=== PATIENT | female | born 1955 | race Hispanic/Latino ===

== ENCOUNTER 2018-05-02 15:43 | Emergency (ER) ==
[~2018-05-02] VITALS: Ht 157.5 cm; Wt 67.6 kg
--- OUTSIDE RECORDS SUMMARY | 2018-05-02 15:46 | XMS REPORT ---
Author Author [facility] Address Unknown Phone Unavailable Care Team Providers Care Residential Life Director Name Role Phone Unavailable Unavailable Problems This patient has no known problems. Allergies, Adverse Reactions, Alerts This patient has no known allergies or adverse reactions. Medications This patient has no known medications. Encounters Start Date/Time End Date/Time Encounter Type Admission Type Attending [facility] [place] Facility Care Department Encounter ID 2018-05-18 00:00:00 2018-05-18 00:00:00 Outpatient [facility] [id number] 2018-05-01 14:32:22 2018-05-01 14:32:22 Outpatient [facility] [id number] 2018-04-30 10:23:44 2018-04-30 10:23:44 Outpatient [facility] [id number] 2018-04-30 09:55:23 2018-04-30 09:55:23 Outpatient [facility] [id number] 2018-02-27 08:47:51 2018-02-27 08:47:51 Outpatient [facility] [id number] 2018-02-27 08:05:34 2018-02-27 08:05:34 Outpatient [facility] [id number] 2018-01-05 07:56:08 2018-01-05 07:56:08 Outpatient [facility] [id number] 2017-11-20 09:36:43 2017-11-20 09:36:43 Outpatient [facility] [id number] 2017-11-20 09:02:38 2017-11-20 09:02:38 Outpatient [facility] [id number] 2017-11-01 00:00:00 2017-11-01 00:00:00 Outpatient [facility] [id number] 2017-08-26 13:29:42 2017-08-26 13:29:42 Outpatient [facility] [id number] 2017-08-26 11:15:29 2017-08-26 11:15:29 Outpatient [facility] [id number] 2017-08-15 00:00:00 2017-08-15 00:00:00 Outpatient [facility] [id number] 2017-07-18 09:13:48 2017-07-18 09:13:48 Outpatient [facility] [id number] 2017-06-18 08:39:48 2017-06-18 08:39:48 Outpatient [facility] [id number] 2017-06-04 08:45:01 2017-06-04 08:45:01 Outpatient [facility] [id number] 2017-05-16 00:00:00 2017-05-16 00:00:00 Outpatient [facility] [id number] 2017-01-06 09:57:47 2017-01-06 09:57:47 Outpatient [facility] [id number] 2016-12-10 09:43:29 2016-12-10 09:43:29 Outpatient [facility] [id number] 2016-12-03 00:00:00 2016-12-03 00:00:00 Outpatient [facility] [id number] 2016-11-29 12:13:18 2016-11-29 12:13:18 Outpatient [facility] [id number] 2016-11-29 11:13:05 2016-11-29 11:13:05 Outpatient [facility] [id number] 2016-11-15 16:00:01 2016-11-15 16:00:01 Outpatient [facility] [id number] 2016-10-22 09:34:17 2016-10-22 09:34:17 Outpatient [facility] [id number] 2016-10-08 00:00:00 2016-10-08 00:00:00 Outpatient [facility] [id number] 2016-10-07 00:00:00 2016-10-07 00:00:00 Outpatient [facility] [id number] 2016-08-23 10:46:00 2016-08-23 10:46:00 Outpatient [facility] [id number] 2016-08-12 08:04:51 2016-08-12 08:04:51 Outpatient [facility] [id number] 2016-08-07 09:49:40 2016-08-07 09:49:40 Outpatient [facility] [id number] 2016-07-09 08:14:39 2016-07-09 08:14:39 Outpatient [facility] [id number] 2016-07-02 11:33:29 2016-07-02 11:33:29 Outpatient [facility] [id number] 2016-07-02 10:10:42 2016-07-02 10:10:42 Outpatient [facility] [id number] 2016-02-23 08:36:30 2016-02-23 08:36:30 Outpatient [facility] [id number]
== END 2018-05-02 17:00 | disposition left against medical advice (07) ==
LOC: ER 15:43
DX: M25.512 Pain in left shoulder (principal); M75.92 Shoulder lesion, unspecified, left shoulder
CPT/HCPCS: 93005

== ENCOUNTER → 2019-04-09 | Outpatient (CLI) | payer OTHER ==
--- NOTE | 2019-04-09 10:24 | Diagnostic Imaging Report ---
EXAMINATION: SP LUMBAR, COMPLETE MIN 4VW INDICATION: Back pain COMPARISON: None FINDINGS: AP, lateral, and oblique images of the lumbar spine were obtained. No acute fracture or dislocation. Alignment appears anatomic. Vertebral body heights are well-maintained. Mild multilevel degenerative changes with small osteophyte formation. Oblique images demonstrate no evidence of spondylolysis. Obstructive bowel gas pattern. No free air. Status post cholecystectomy. IMPRESSION: No acute osseous injury of the lumbar spine. Mild multilevel degenerative changes. Signed by: Daija Patrick MD on 04/09/2019 10:22 AM
== END ==
LOC: RAD 09:29
PROVIDERS: ATTEND Internal Medicine
DX: M54.5 Low back pain (principal)
CPT/HCPCS: 72110

== ENCOUNTER → 2019-04-30 | Outpatient (CLI) | payer OTHER ==
--- NOTE | 2019-04-30 08:54 | Diagnostic Imaging Report ---
EXAMINATION: CHEST 2 VIEWS INDICATION: Influenza, chest pain COMPARISON: None FINDINGS: LINES/TUBES:None LUNGS:The lungs are well-inflated. Mildly increased interstitial reticulonodular opacities. PLEURA:No pleural effusion or pneumothorax. MEDIASTINUM:The cardiomediastinal silhouette appears normal in size and shape. BONES/SOFT TISSUES:No acute osseous injury. ABDOMEN:No free air under the diaphragm. IMPRESSION: Mildly increased interstitial reticular nodular opacities which can be seen with viral pneumonitis. Signed by: Daija Patrick MD on 04/30/2019 8:51 AM
== END ==
LOC: RAD 07:46
PROVIDERS: ATTEND Internal Medicine
DX: J06.9 Acute upper respiratory infection, unspecified (principal)
CPT/HCPCS: 71046

== ENCOUNTER → 2019-06-16 | Outpatient (CLI) | payer OTHER ==
--- NOTE | 2019-06-16 15:51 | Diagnostic Imaging Report ---
Exam: Left hip 2 views History: Hip pain Comparison: None. Findings: No acute displaced fracture or dislocation. Femoral head projects appropriately over the acetabulum. The joint space is well-maintained. Minimal enthesopathic change along the greater trochanter. Soft tissues unremarkable. Impression: No acute osseous abnormality. Signed by: Dr. Saturnino Ro M.D. on 06/16/2019 3:47 PM
== END ==
LOC: RAD 13:34
PROVIDERS: ATTEND Internal Medicine
DX: M16.12 Unilateral primary osteoarthritis, left hip (principal)

== ENCOUNTER → 2019-08-23 | Outpatient (CLI) | payer OTHER ==
--- NOTE | 2019-08-23 15:58 | Diagnostic Imaging Report ---
EXAMINATION: CHEST 2 VIEWS INDICATION: Chest pain COMPARISON: Chest radiograph 04/30/2019 FINDINGS: LINES/TUBES:None LUNGS:The lungs are well-inflated. No focal consolidation or pulmonary edema. PLEURA:No pleural effusion or pneumothorax. MEDIASTINUM:The cardiomediastinal silhouette appears normal in size and shape. BONES/SOFT TISSUES:No acute osseous injury. ABDOMEN:No free air under the diaphragm. IMPRESSION: No focal pneumonia or pulmonary edema. Signed by: Daija Patrick MD on 08/23/2019 3:54 PM
== END ==
LOC: RAD 14:33
PROVIDERS: ATTEND Internal Medicine
DX: R07.89 Other chest pain (principal)
CPT/HCPCS: 71046

== ENCOUNTER → 2020-08-01 | Outpatient (CLI) | payer MEDICARE ==
[~2020-08-01] MED LIST: IOPAMIDOL 370 MG/ML 200 ML INFUS..BTL INJ ONE; SODIUM CHLORIDE 0.9% 50ML 50 ML ONE
== END ==
LOC: CT 08:45
PROVIDERS: ATTEND Internal Medicine
DX: K80.50 Calculus of bile duct without cholangitis or cholecystitis without obstruction (principal); K76.9 Liver disease, unspecified
CPT/HCPCS: 74160; Q9967

== ENCOUNTER → 2020-10-27 | Outpatient (CLI) | payer MEDICARE | LOC: RAD 13:47 | PROVIDERS: ATTEND Internal Medicine | DX: M16.11 Unilateral primary osteoarthritis, right hip (principal) ==